=== PATIENT | male | born 1975 | race Caucasian/White ===

== ENCOUNTER 2018-10-03 21:53 | Emergency (ER) | payer MEDICAID, MEDICARE ==
[~2018-10-03] VITALS: Ht 182.9 cm; Wt 99.8 kg
[~2018-10-03 21:53] MED LIST: AZIT-21 PO; CYCL10TA9 PO; HYDR-2890 PO; NAPR-243 PO; PRD20T PO; TRM50T PO
--- OUTSIDE RECORDS SUMMARY | 2018-10-03 21:57 | XMS REPORT | Continuity of Care Document ---
Author Organization Unknown Address Unknown Allergies Active Description Code Type Severity Reaction Onset Reported/Identified Relationship to Patient Clinical Status Yes Penicillins Drug Allergy N/A N/A 07/02/2013 Yes Toradol Drug Allergy N/A N/A 07/02/2013 Yes tramadol Drug Allergy N/A N/A 07/02/2013 Medications There is no data. 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 07/02/2013 IVANA GALDAMEZ APRN R 521.07 DENTAL CARIES OF SMOOTH SURFACE 07/02/2013 IVANA GALDAMEZ APRN R 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 08/08/2013 IVANA GALDAMEZ APRN R 461.9 SINUSITIS ACUTE 08/08/2013 IVANA GALDAMEZ APRN R 786.2 COUGH 08/08/2013 IVANA GALDAMEZ APRN R 850.11 CONCUSSION WITH LOSS OF CONSCIOUSNESS OF 30 MINUTES OR LESS 08/08/2013 IVANA GALDAMEZ APRN R 854.02 INTRACRANIAL INJURY OF OTHER AND UNSPECIFIED NATURE WITHOUT OPEN INTRACRANIAL WOUND WITH BRIEF (LESS THAN ONE HOUR) LOSS OF CONSCIOU Procedures Code [place] [address] URINE DRUG SCREEN (IN-HOUSE ) 07/02/[address] HEAD/BRAIN W/O DYE 08/08/2013 00136 UA LONG DIP 08/08/2013 20682 URINE DRUG SCREEN (IN-HOUSE ) 08/08/2013 Results There is no data. Encounters ACCT No. Visit Date/Time Discharge Status Pt. Type Provider Facility Loc./Unit Complaint [id number] 08/08/2013 10:45:00 08/08/2013 23:59:59 CLS Outpatient IVANA GALDAMEZ APRN [id number] 07/11/2013 09:56:00 07/11/2013 23:59:59 CLS Outpatient IVANA GALDAMEZ APRN [id number] 07/02/2013 16:12:00 07/02/2013 23:59:59 CLS Outpatient RITA ROGEL DO [id number] 07/02/2013 16:12:00 07/02/2013 23:59:59 CLS Outpatient IVANA GALDAMEZ APRN [id number] 08/08/2013 12:01:00 08/08/2013 23:59:59 CLS Outpatient [id number] 06/29/2013 11:01:00 06/29/2013 12:16:00 DIS Emergency [id number] 05/22/2013 12:28:00 05/22/2013 23:59:59 CLS Emergency [id number] 05/17/2013 17:12:00 05/17/2013 19:13:00 DIS Emergency
[2018-10-03 22:33] VITALS: BP 116/70
--- NOTE | 2018-10-04 05:17 | Diagnostic Imaging Report ---
INDICATION: Right foot injury. FINDINGS: 3 views of right foot show no fracture, dislocation or other acute abnormalities. IMPRESSION: Negative right foot. Dictated by: Dictated on workstation # [id number]
--- NOTE | 2018-10-04 16:56 | ED Lower Extremity ---
General Chief Complaint: Lower Extremity Stated Complaint: RT BIG TOE INJ Nursing Triage Note: pt kicked horse shoe stand while walking around in the dark at 0630 this morning. pt has taken ibuprofen 800 mg tid today Nursing Sepsis Screen: No Definite Risk Source: patient Exam Limitations: no limitations History of Present Illness Date Seen by Provider: October 04, 2018 Time Seen by Provider: 19:22 Initial Comments She has a 42-year-old male well known to this emergency department presents with right forefoot pain after kicking a horseshoe stand early today. She has been active walking throughout the day. He reports pain despite taking ibuprofen. No other symptoms or complaint. On exam, there is no appreciated swelling, bruising, deformity to the medial aspect of the forefoot or patient localizes pain. Patient ambulates with steady gait. Onset: this morning Pain/Injury Location: right 1st toe Method of Injury: direct blow Allergies and Home Medications Home Medications Cyclobenzaprine Hcl 10 Mg Tablet, 1 EACH PO TID, (Reported) Hydrocodone Bit/Acetaminophen 1 Each Tablet, 1 EACH PO QID, (Reported) Prednisone 20 Mg Tab, 40 MG PO DAILY Prescribed by: JORDYN ROWLAND on 05/17/13 0342 Patient Home Medication List Home Medication List Reviewed: Yes Review of Systems Constitutional: no symptoms reported EENTM: no symptoms reported Respiratory: no symptoms reported Cardiovascular: no symptoms reported Genitourinary: no symptoms reported Musculoskeletal: see HPI Skin: no symptoms reported Psychiatric/Neurological: No Symptoms Reported Past Gfznwoz-Esfsaw-Jjxffk Hx Patient Social History Alcohol Use: Denies Use Recreational Drug Use: No Smoking Status: Current Everyday Smoker Type Used: Cigarettes 2nd Hand Smoke Exposure: No Recent Foreign Travel: No Contact w/Someone Who Travel: No Recent Infectious Disease Expo: No Recent Hopitalizations: No Physical Abuse: No Sexual Abuse: No Mistreated: No Fear: No Immunizations Up To Date Date of Influenza Vaccine: Jun 05, 2012 Seasonal Allergies Seasonal Allergies: No Past Medical History Surgeries: No Respiratory: No Cardiac: No Neurological: No Genitourinary: No Gastrointestinal: No Musculoskeletal: No Chronic Back Pain Endocrine: No HEENT: No Cancer: No Psychosocial: No Bipolar Integumentary: No Blood Disorders: No Family Medical History No Pertinent Family Hx Physical Exam Vital Signs Vital Signs - First Documented 10/03/18 22:08 Temp 98.4 Pulse 98 Resp 15 B/P (MAP) 124/80 (95) Pulse Ox 96 O2 Delivery Room Air Capillary Refill : Less Than 3 Seconds Height, Weight, BMI Height: 6'0" Weight: 220lbs. oz. 99.475184qk; BMI Method:Stated General Appearance: WD/WN Progress/Results/Core Measures Results/Orders My Orders Orders - JOSE DAVID RODGERS DO Foot 3 View Right (10/03/18 22:10) Vital Signs/I&O 10/03/18 10/03/18 22:08 22:33 Temp 98.4 98.0 Pulse 98 93 Resp 15 16 B/P (MAP) 124/80 (95) 116/70 (85) Pulse Ox 96 95 O2 Delivery Room Air Room Air Blood Pressure Mean: 85 Departure Communication (Admissions) No identifiable gross injury fracture on imaging studies. Recommend Simone wrap, ibuprofen and supportive care. Impression Primary Impression: Right foot pain Disposition: 01 HOME, SELF-CARE Condition: Improved Departure-Patient Inst. Add. Discharge Instructions: You were evaluated in the emergency department for right foot injury. No injury is found on exam or x-ray. Please apply ice and continue ibuprofen for pain. Avoid walking, standing for prolonged periods of time if symptoms persist. All discharge instructions reviewed with patient and/or family. Voiced understanding. JOSE DAVID RODGERS DO October 04, 2018 16:56
== END 2018-10-03 22:33 | disposition home or self-care (01) ==
LOC: EDUNIT# 21:53 → ER FS 21:54
DX: M79.671 Pain in right foot (principal); F31.9 Bipolar disorder, unspecified; F17.210 Nicotine dependence, cigarettes, uncomplicated; Z79.52 Long term (current) use of systemic steroids; W22.09XA Striking against other stationary object, initial encounter
CPT/HCPCS: 73630

== ENCOUNTER 2020-12-22 17:26 | Emergency (ER) | payer SELFPAY ==
[~2020-12-22] VITALS: Ht 180.3 cm; Wt 95.4 kg
[2020-12-22 17:30] VITALS: BP 118/75
--- NOTE | 2020-12-22 18:02 | ED Lower Extremity ---
General Chief Complaint: General Problems/Pain Stated Complaint: FALL; RT HAND/LT FOOT INJ Source: patient History of Present Illness Date Seen by Provider: Dec 22, 2020 Time Seen by Provider: 17:15 Initial Comments Patient is a 45-year-old male who presents with right wrist pain and left midfoot pain after falling 18 hours ago. Reports sharp pain to the right ulnar aspect of wrist and dorsum of left foot. Pain is worse with palpation patient hand and wrist movement. Patient has history of right wrist injury. No other symptoms or complaints Onset: yesterday Severity: moderate Pain/Injury Location: left foot Method of Injury: other Modifying Factors: Improves With Other Allergies and Home Medications Allergies Coded Allergies: No Known Drug Allergies (Unverified , 12/22/20) Home Medications Cyclobenzaprine Hcl 10 Mg Tablet, 1 EACH PO TID, (Reported) Hydrocodone Bit/Acetaminophen 1 Each Tablet, 1 EACH PO QID, (Reported) Prednisone 20 Mg Tab, 40 MG PO DAILY Prescribed by: JORDYN ROWLAND on 05/17/131906 Patient Home Medication List Home Medication List Reviewed: Yes Review of Systems Constitutional: no symptoms reported Musculoskeletal: joint swelling, muscle pain Past Zkkoggc-Lzwiap-Nifxfb Hx Seasonal Allergies Seasonal Allergies: No Past Medical History Surgeries: No Respiratory: No Cardiac: No Neurological: No Genitourinary: No Gastrointestinal: No Musculoskeletal: No Chronic Back Pain Endocrine: No HEENT: No Cancer: No Psychosocial: No Bipolar Integumentary: No Blood Disorders: No Family Medical History No Pertinent Family Hx Physical Exam Vital Signs Vital Signs - First Documented 12/22/20 17:30 Temp 36.2 Pulse 90 Resp 20 B/P (MAP) 118/75 (89) Pulse Ox 98 O2 Delivery Room Air Capillary Refill : Height, Weight, BMI Height: 6'0" Weight: 220lbs. oz. 99.821726nz; BMI Method:Stated General Appearance: WD/WN Feet: left foot soft tissue tenderness Neurologic/Tendon: normal sensation Neurologic/Psychiatric: full stack engineer II-XII nml as tested, no motor/sensory deficits, alert, oriented x 3 Skin: normal color Lymphatic: no adenopathy Right wrist, no deformity, soft tissue tenderness right ulnar aspect of right wrist. Progress/Results/Core Measures Results/Orders My Orders Orders - JOSE DAVID RODGERS DO Foot 3 View Left (12/22/20 17:36) Wrist 3 View Right (12/22/20 17:36) Ice: Apply To Affected Area (12/22/20 18:13) Ibuprofen Tablet (Motrin Tablet) (12/22/20 18:15) Vital Signs/I&O 12/22/20 17:30 Temp 36.2 Pulse 90 Resp 20 B/P (MAP) 118/75 (89) Pulse Ox 98 O2 Delivery Room Air Departure Communication (Admissions) Left foot x-ray: No obvious displaced fracture per radiology report Right wrist x-ray: No obvious displaced fracture per radiology report Patient histrionic on exam. No obvious acute fracture injury identified on physical exam or imaging. Recommendations are supportive care with PCP follow-up. Impression Primary Impression: Injury of right wrist Additional Impression: Injury of left foot Disposition: 01 HOME, SELF-CARE Condition: Stable Departure-Patient Inst. Decision time for Depature: 18:19 Referrals: NO,LOCAL PHYSICIAN (PCP/Family) Primary Care Physician Patient Instructions: Foot Sprain (DC), Common Wrist Injuries ED Add. Discharge Instructions: Please take 600 mg of ibuprofen 3 times daily, apply ice to affected areas and follow-up with your PCP as needed. All discharge instructions reviewed with patient and/or family. Voiced understanding. JOSE DAVID RODGERS DO Dec 22, 2020 18:02
--- NOTE | 2020-12-22 18:11 | Diagnostic Imaging Report ---
INDICATION: Fall. COMPARISON: None FINDINGS: Three views of the right wrist demonstrate chronic degeneration with subchondral cysts of the scaphoid. Orthopedic pins are seen in the fifth metacarpal. There is no obvious acute fracture or dislocation. No unexpected radiopaque foreign body. IMPRESSION: No obvious acute fracture deformity. If symptoms persist follow-up is recommended. Dictated by: Dictated on workstation # [id number]
--- NOTE | 2020-12-22 18:12 | Diagnostic Imaging Report ---
INDICATION: Fall, left foot pain. FINDINGS: Three views of the left foot demonstrate no fracture or dislocation. Articular surfaces are normal. No bony erosion is seen. No foreign body. IMPRESSION: No fracture identified. Dictated by: Dictated on workstation # [id number]
[2020-12-22] MEDS ORDERED: IBUPROFEN 600 MG (MOTRIN) TAB PO ONE (18:15)
== END 2020-12-22 18:27 | disposition home or self-care (01) ==
LOC: EDUNIT# 17:26 → ER FS 17:27
DX: S69.91XA Unspecified injury of right wrist, hand and finger(s), initial encounter (principal); S99.922A Unspecified injury of left foot, initial encounter; G89.29 Other chronic pain; M54.9 Dorsalgia, unspecified; Z79.891 Long term (current) use of opiate analgesic; Z79.899 Other long term (current) drug therapy; Z79.52 Long term (current) use of systemic steroids; W19.XXXA Unspecified fall, initial encounter
CPT/HCPCS: 73110; 73630

== ENCOUNTER 2021-01-01 13:03 | Emergency (ER) | payer SELFPAY ==
[~2021-01-01] VITALS: Ht 180.3 cm; Wt 95.3 kg
[2021-01-01 13:05] VITALS: BP 121/81
[2021-01-01] MEDS ORDERED: KETOROLAC 60 MG/2 ML VIAL IM STA (13:52)
[2021-01-01] MEDS ORDERED: ORPHENADRINE 60 MG/2 ML (NORFLEX) AMP (ED ONLY) IM STA (13:52)
--- NOTE | 2021-01-01 13:53 | ED General ---
General Chief Complaint: General Problems/Pain Stated Complaint: ALFONZO ANK/WRIST SWELLING Source of Information: Patient, EMS History of Present Illness Date Seen by Provider: Jan 01, 2021 Time Seen by Provider: 13:24 Initial Comments 45 yo male presented by EMS stating he was having increasing pain since his fall on December 22. He was evaluated in the ED on December 22 and had x-rays of his right wrist and foot. He has not followed up with Dr. Gruber the [facility] clinic. She prescribed diclofenac and Flexeril for him. He states that they were not helping with his pain symptoms. He felt like he was getting increasing swelling and pain to the point that he was having difficulty using his hands and his feet. He feels like he has swelling to the right knee joint which she thinks caused his initial fall. He feels like he has some mild bruising to the inside of both feet. He is complaining of pain, swelling, bruising to the wrist and hand worse on the left than the right. He states that he has been trying to use the medicine prescribed by Dr. Yoel Mckenzie pulled out at home but felt like things were so bad today that he had to be seen. He made the statement that "I deserve pain medicine for waiting so long to come in". He adamantly denies u sing any drugs or alcohol and repeatedly states that he deserves pain medication. Location Injury Occurred: home Timing/Duration: Getting Worse, Other (Initial injury December 22) Severity: Severe Modifying Factors: worse with Movement Associated Systoms: No Chest Pain, No Cough, No Diaphoresis, No Fever/Chills, No Headaches, No Loss of Appetite, No Nausea/Vomiting, No Rash, No Seizure, No Shortness of Air, No Syncope Allergies and Home Medications Allergies Coded Allergies: No Known Drug Allergies (Unverified , 12/22/20) Home Medications No Active Prescriptions or Reported Meds Patient Home Medication List Home Medication List Reviewed: Yes Review of Systems Review of Systems Constitutional: No chills, No fever EENTM: no symptoms reported Respiratory: no symptoms reported Cardiovascular: no symptoms reported Gastrointestinal: no symptoms reported Genitourinary: no symptoms reported Musculoskeletal: see HPI Skin: see HPI Psychiatric/Neurological: Anxiety Past Eghllod-Mzvjjm-Sazqkt Hx Seasonal Allergies Seasonal Allergies: No Past Medical History Surgery/Hospitalization HX: Boxer's Fx R hand?, Numerous falls on hx reporting injuries Surgeries: No Respiratory: No Cardiac: No Neurological: No Genitourinary: No Gastrointestinal: No Musculoskeletal: No Chronic Back Pain Endocrine: No HEENT: No Cancer: No Psychosocial: No Bipolar Integumentary: No Blood Disorders: No Family Medical History No Pertinent Family Hx Physical Exam Vital Signs Vital Signs - First Documented 01/01/21 13:05 Temp 37.2 Pulse 116 Resp 18 B/P (MAP) 121/81 (94) Pulse Ox 97 O2 Delivery Room Air Capillary Refill : Height, Weight, BMI Height: 6'0" Weight: 220lbs. oz. 99.435786tx; 29.00 BMI Method:Stated General Appearance: Anxious, Other (Demanding meanor and short tempered with staff. yelling frequently and repeatedly even when redirected or had his needs/questions addressed) Neck: Full Range of Motion, Normal Inspection, Non Tender, Supple Respiratory: Chest Non Tender, Lungs Clear, Normal Breath Sounds Cardiovascular: Normal Peripheral Pulses, Tachycardia Extremity: Normal Capillary Refill, No Calf Tenderness, Swelling (mild swelling to bilateral wrists, left more than right. mild swelling to medial aspect of bilateral feet. ) Neurologic/Psychiatric: Alert, Oriented x3, cork insulation setter II-XII Norm as Tested Skin: Warm/Dry, Ecchymosis (mild ecchymosis/bruised area to left wrist palmar aspect) Progress/Results/Core Measures Suspected Sepsis SIRS Temperature: Pulse: Respiratory Rate: Laboratory Tests 01/01/21 14:20: White Blood Count 24.4H Blood Pressure / Mean: Laboratory Tests 01/01/21 14:20: Creatinine 0.55L, Platelet Count 575H, Total Bilirubin 0.8 Results/Orders Lab Results Laboratory Tests Test 01/01/21 14:20 Range/Units White Blood Count 24.4 H 4.3-11.0 10^3/uL Red Blood Count 4.19 L 4.35-5.85 10^6/uL Hemoglobin 12.8 L 13.3-17.7 G/DL Hematocrit 38 L 40-54 % Mean Corpuscular Volume 90 80-99 FL Mean Corpuscular Hemoglobin 31 25-34 PG Mean Corpuscular Hemoglobin Concent 34 32-36 G/DL Red Cell Distribution Width 15.4 H 10.0-14.5 % Platelet Count 575 H 130-400 10^3/uL Mean Platelet Volume 9.5 7.4-10.4 FL Immature Granulocyte % (Auto) 9 % Neutrophils (%) (Auto) 80 H 42-75 % Lymphocytes (%) (Auto) 6 L 12-44 % Monocytes (%) (Auto) 4 0-12 % Eosinophils (%) (Auto) 1 0-10 % Basophils (%) (Auto) 0 0-10 % Neutrophils # (Auto) 19.5 H 1.8-7.8 X 10^3 Lymphocytes # (Auto) 1.5 1.0-4.0 X 10^3 Monocytes # (Auto) 1.0 0.0-1.0 X 10^3 Eosinophils # (Auto) 0.2 0.0-0.3 10^3/uL Basophils # (Auto) 0.1 0.0-0.1 10^3/uL Immature Granulocyte # (Auto) 2.1 H 0.0-0.1 10^3/uL Neutrophils % (Manual) 81 % Lymphocytes % (Manual) 9 % Monocytes % (Manual) 2 % Metamyelocytes % 3 % Myelocytes % 2 % Band Neutrophils 3 % Toxic Granulation 3+ Dohle Bodies Platelet Estimate INCREASED Target Cells SLIGHT Blood Morphology Comment ABNORMAL D-Dimer 7.59 H 0.00-0.49 UG/ML Sodium Level 130 L 135-145 MMOL/L Potassium Level 4.7 3.6-5.0 MMOL/L Chloride Level 95 L 98-107 MMOL/L Carbon Dioxide Level 22 21-32 MMOL/L Anion Gap 13 5-14 MMOL/L Blood Urea Nitrogen 11 7-18 MG/DL Creatinine 0.55 L 0.60-1.30 MG/DL Estimat Glomerular Filtration Rate 160 BUN/Creatinine Ratio 20 Glucose Level 201 H 70-105 MG/DL Calcium Level 8.5 8.5-10.1 MG/DL Corrected Calcium 9.6 8.5-10.1 MG/DL Total Bilirubin 0.8 0.1-1.0 MG/DL Aspartate Amino Transf (AST/SGOT) 63 H 5-34 U/L Alanine Aminotransferase (ALT/SGPT) 108 H 0-55 U/L Alkaline Phosphatase 384 H 40-136 U/L Total Protein 6.8 6.4-8.2 GM/DL Albumin 2.6 L 3.2-4.5 GM/DL My Orders Orders - CHARY BROWER MD Comprehensive Metabolic Panel (01/01/21 13:46) Ua Culture If Indicated (01/01/21 13:46) Cbc With Automated Diff (01/01/21 13:46) Fibrin Degradation Products (01/01/21 13:46) Wrist 3 View Bilateral (01/01/21 13:46) Hand 3 View Bilateral (01/01/21 13:46) Foot 3 View Bilateral (01/01/21 13:46) Drug Screen Stat (Urine) (01/01/21 13:48) Ketorolac Injection (Toradol Injection) (01/01/21 13:52) Orphenadrine Inj (Ed Only) (Norflex Inje (01/01/21 13:52) Manual Differential (01/01/21 14:20) Vital Signs/I&O 01/01/21 13:05 Temp 37.2 Pulse 116 Resp 18 B/P (MAP) 121/81 (94) Pulse Ox 97 O2 Delivery Room Air Capillary Refill : Progress Note #1: Progress Note Advised patient that I cannot give him an exact answer of why he was still having swelling and pain to his hands, wrists, feet after 10 days of symptoms since the fall. He felt like things were improved with the medication from Dr. Gruber. He repeatedly asked for pain medicine stating that he "deserves pain medicine because I waited so long to come in and be seen". Counseled pt that will order xrays to check the hands, wrists, and feet. For his pain will get him a pain shot. check basic labs and urine. As I finished my evaluation of the patient he had to be moved to another room as the current room he was in was needed for another patient requiring that specific room which had psychiatric capability. Progress Note #2: Progress Note Patient had imaging done of his hands, wrists and feet. He then was waiting on labs and reading of films. He continued to yell out for the nurse every minute or two, even right after staff would go in and answer questions for him or assist him. While I was working with another patient that required a procedure, the patient became more and more belligerent to the point that he signed out AMA and refused to wait and speak with me when I got out of the procedure with the other patient. When I did finish with the other patient she had already left [facility]. By that point his x-ray results were back and did show a subacute fifth metacarpal fracture on the left hand. This certainly could be contributing to the pain and swelling into his wrist. He had no acute changes on the right side and the hardware appeared to be intact. Has feet were negative bilaterally. His lab work showed elevated white blood cell count and his chemistry panel showed elevated LFTs with an elevated D-dimer. Patient had told the nursing staff that he intended to go to another hospital to be seen since he felt like we were taking too long and were not adequately taking care of him. Diagnostic Imaging Diagonstic Imaging: Xray Plain Films/CT/US/NM/MRI: hand Comments [facility] [place], [place] NAME: PRETTY CASTRO [facility] REC#: [id number] PT STATUS: DEP ER : 1975 PHYSICIAN: CHARY BROWER MD ADMIT DATE: 01/01/21/ER FS Signed Date of Exam:01/01/21 WRIST 3 VIEW BILATERAL INDICATION: Bilateral wrist pain status post fall. COMPARISON: 12/22/2020. FINDINGS: Multiple radiographic views of the bilateral wrists were obtained. LEFT WRIST: There is no acute fracture or dislocation of the left wrist. Note is again made of subacute appearing fracture of the distal fifth metacarpal. Radiopaque foreign body is also noted within the soft tissues medial to the first metacarpal. Joint spaces are maintained. RIGHT WRIST: There is no acute fracture or dislocation of the right wrist. Degenerative lucencies of the scaphoid are again noted. Two Lexii wires are also again identified within the fifth metacarpal. No new acute fracture or dislocation is seen. IMPRESSION: 1. No new acute fracture or dislocation of either wrist. 2. Subacute appearing fracture of the left fifth metacarpal. 3. Degenerative changes of the right scaphoid. 4. Curvilinear metallic foreign body medial to the left first metacarpal. Dictated by: Dictated on workstation # [id number] Dict: 01/01/21 1432 Trans: 01/01/21 1741 [id number] Interpreted by: PRERNA BLAKE MD Electronically signed by: PRERNA BLAKE MD 01/01/211740 [facility] [place] [place] NAME: PRETTY CASTRO MED REC#: [id number] PT STATUS: [facility] : 1975 PHYSICIAN: CHARY BROWER MD ADMIT DATE: 01/01/21/ER FS Signed Date of Exam:01/01/21 HAND 3 VIEW BILATERAL INDICATION: Fall. Pain. Injury. COMPARISON: None. FINDINGS: Multiple radiographic views of both hands were obtained. LEFT HAND: A subacute obliquely oriented fracture is identified involving the distal fifth metacarpal shaft. There is moderate angulation of approximately 50 degrees. Note is made of surrounding soft tissue ossification consistent with probable early partial healing. No intra-articular extension is seen. No other acute osseous abnormalities are identified. Joint spaces are maintained. There is chronic appearing deformity involving the proximal margins of the fifth distal phalanx. Note is also made of curvilinear metallic foreign body within the soft tissues medial to the first metacarpal. RIGHT HAND: Two Lexii wires are again identified traversing the fifth metacarpal. These are in stable position. There is no new acute fracture or dislocation of the right hand. Remaining osseous structures are intact. Note is made of lucencies within the scaphoid; potentially degenerative. IMPRESSION: 1. Mildly angulated subacute fracture of the left fifth metacarpal as above. 2. Postsurgical changes to the right fifth metacarpal, but no evidence of acute fracture or dislocation of the right hand. 3. Soft tissue metallic foreign body of the left hand. 4. Probable degenerative lucencies of the right scaphoid. Dictated by: Dictated on workstation # [id number] Dict: 01/01/21 1420 Trans: 01/01/21 174 [id number] Interpreted by: PRERNA BLAKE MD Electronically signed by: PRERNA BLAKE MD 01/01/211739 Diagonstic Imaging: Xray Plain Films/CT/US/NM/MRI: other (foot) Comments [facility] [place] NAME: PRETTY CASTRO MED REC#: [id number] PT STATUS: DEP ER : 1975 PHYSICIAN: CHARY BROWER MD ADMIT DATE: 01/01/21/ER FS Signed Date of Exam:01/01/21 FOOT 3 VIEW BILATERAL INDICATION: Foot pain status post recent fall. COMPARISON: None. FINDINGS: Multiple radiographic views of the bilateral feet demonstrate no acute fracture or dislocation. There are no focal osseous lesions. There is no soft tissue swelling. Joint spaces are well maintained. No radiopaque foreign bodies are seen. IMPRESSION: No acute fractures or dislocations of the bilateral feet. Dictated by: Dictated on workstation # [id number] Dict: 01/01/21 1424 Trans: 01/01/[address] [facility] [id number] Interpreted by: PRERNA BLAKE MD Electronically signed by: PRERNA BLAKE MD 01/01/21 1740 Departure Impression Primary Impression: Left against medical advice Additional Impressions: Closed fracture of fifth metacarpal bone of left hand Qualified Codes: S62.327D - Displaced fracture of shaft of fifth metacarpal bone, left hand, subsequent encounter for fracture with routine healing Bilateral hand swelling Swelling of both wrists Bilateral foot pain Bilateral wrist pain Fall at home Qualified Codes: W19.XXXD - Unspecified fall, subsequent encounter; Y92.009 - Unspecified place in unspecified non-institutional (private) residence as the place of occurrence of the external cause Disposition: 07 AGAINST MEDICAL ADVICE Condition: Against Medical Advice Departure-Patient Inst. Referrals: NO,LOCAL PHYSICIAN (PCP/Family) Primary Care Physician Scripts No Active Prescriptions or Reported Meds CHARY BROWER MD Jan 01, 2021 13:53
--- NOTE | 2021-01-01 14:26 | Diagnostic Imaging Report ---
INDICATION: Foot pain status post recent fall. COMPARISON: None. FINDINGS: Multiple radiographic views of the bilateral feet demonstrate no acute fracture or dislocation. There are no focal osseous lesions. There is no soft tissue swelling. Joint spaces are well maintained. No radiopaque foreign bodies are seen. IMPRESSION: No acute fractures or dislocations of the bilateral feet. Dictated by: Dictated on workstation # [id number]
--- NOTE | 2021-01-01 14:29 | Diagnostic Imaging Report ---
INDICATION: Fall. Pain. Injury. COMPARISON: None. FINDINGS: Multiple radiographic views of both hands were obtained. LEFT HAND: A subacute obliquely oriented fracture is identified involving the distal fifth metacarpal shaft. There is moderate angulation of approximately 50 degrees. Note is made of surrounding soft tissue ossification consistent with probable early partial healing. No intra-articular extension is seen. No other acute osseous abnormalities are identified. Joint spaces are maintained. There is chronic appearing deformity involving the proximal margins of the fifth distal phalanx. Note is also made of curvilinear metallic foreign body within the soft tissues medial to the first metacarpal. RIGHT HAND: Two Lexii wires are again identified traversing the fifth metacarpal. These are in stable position. There is no new acute fracture or dislocation of the right hand. Remaining osseous structures are intact. Note is made of lucencies within the scaphoid; potentially degenerative. IMPRESSION: 1. Mildly angulated subacute fracture of the left fifth metacarpal as above. 2. Postsurgical changes to the right fifth metacarpal, but no evidence of acute fracture or dislocation of the right hand. 3. Soft tissue metallic foreign body of the left hand. 4. Probable degenerative lucencies of the right scaphoid. Dictated by: Dictated on workstation # [id number]
--- NOTE | 2021-01-01 14:37 | Diagnostic Imaging Report ---
INDICATION: Bilateral wrist pain status post fall. COMPARISON: 12/22/2020. FINDINGS: Multiple radiographic views of the bilateral wrists were obtained. LEFT WRIST: There is no acute fracture or dislocation of the left wrist. Note is again made of subacute appearing fracture of the distal fifth metacarpal. Radiopaque foreign body is also noted within the soft tissues medial to the first metacarpal. Joint spaces are maintained. RIGHT WRIST: There is no acute fracture or dislocation of the right wrist. Degenerative lucencies of the scaphoid are again noted. Two Lexii wires are also again identified within the fifth metacarpal. No new acute fracture or dislocation is seen. IMPRESSION: 1. No new acute fracture or dislocation of either wrist. 2. Subacute appearing fracture of the left fifth metacarpal. 3. Degenerative changes of the right scaphoid. 4. Curvilinear metallic foreign body medial to the left first metacarpal. Dictated by: Dictated on workstation # [id number]
[2021-01-01 14:53] LABS: BASOPHILS % (AUTO) 0 % (0-10); EOSINOPHILS % (AUTO) 1 % (0-10); HEMATOCRIT 38 % (40-54); HEMOGLOBIN 12.8 G/DL (13.3-17.7); LYMPHOCYTES % (AUTO) 6 % (12-44); MEAN CORPUSCULAR HEMOGLOBIN 31 PG (25-34); MEAN CORPUSCULAR HGB CONC 34 G/DL (32-36); MEAN CORPUSCULAR VOLUME 90 FL (80-99); MEAN PLATELET VOLUME 9.5 FL (7.4-10.4); MONOCYTES % (AUTO) 4 % (0-12); NEUTROPHILS % (AUTO) 80 % (42-75); PLATELET COUNT 575 10^3/uL (130-400); WHITE BLOOD COUNT 24.4 10^3/uL (4.3-11.0)
[2021-01-01 14:54] LABS: BASOPHILS # (AUTO) 0.1 10^3/uL (0.0-0.1); EOSINOPHILS # (AUTO) 0.2 10^3/uL (0.0-0.3); LYMPHOCYTES # (AUTO) 1.5 X 10^3 (1.0-4.0); NEUTROPHILS # (AUTO) 19.5 X 10^3 (1.8-7.8)
[2021-01-01 15:15] LABS: ALBUMIN 2.6 GM/DL (3.2-4.5); BILIRUBIN,TOTAL 0.8 MG/DL (0.1-1.0); CALCIUM 8.5 MG/DL (8.5-10.1); CREATININE SERUM 0.55 MG/DL (0.60-1.30); TOTAL PROTEIN 6.8 GM/DL (6.4-8.2)
[2021-01-01 15:18] LABS: POTASSIUM 4.7 MMOL/L (3.6-5.0)
[2021-01-01 15:26] LABS: BAND NEUTROPHILS 3 %; LYMPHOCYTES % (MANUAL) 9 %; METAMYELOCYTES % 3 %; MONOCYTES % (MANUAL) 2 %; MYELOCYTES % 2 %; NEUTROPHILS % (MANUAL) 81 %; PLATELET ESTIMATE INCREASED
[2021-01-01 15:27] LABS: RBC MORPH ABNORMAL; TARGET CELLS SLIGHT; TOXIC GRANULATION/VACUOLAZATIO 3+
--- OUTSIDE RECORDS SUMMARY | 2021-01-05 23:31 | XMS REPORT ---
Author Author [facility] ([facility]) Address Unknown Phone Unavailable Care Team Providers Care Acquisition Editor Name Role Phone Migration, Doctor Unavailable Unavailable PROBLEMS Type Condition ICD9-CM Code IME67-SU Code Onset Dates Condition S tatus W/U Status Risk SNOMED Code Notes Problem Displacement of lumbar intervertebral disc without mye lopathy M51.26 Active 20020311 DISPLACEMENT OF LUMBAR INTERVERTEBRAL DISC WITHOUT MYELOPATHY Problem Other chronic pain G89.29 Active confirmed 8 5603556 Problem Concussion with loss of consciousness of 30 minutes or less S06.0X1A Active [id number] CONCUSSION WITH LOSS OF CONSCIOUSNESS OF 30 MINUTES OR LESS ALLERGIES Allergen (clinical drug ingredient) Drug/Non Drug Allergy do cumented on EMR Reaction Allergy Type Onset Date Status Tramadol Unknown Drug Allergy Active Toradol Unknown Drug Allergy Active amoxicillin Amoxicillin(FORMER[facility] NAMED [facility] Code:[address]-14) Unknown Drug Aller gy Active ENCOUNTERS from 1975 to 2020-11-25 Encounter Location Date Provider Diagnosis [facility] [address] [facility] [id number] [place] [address] Sep, Doctor Migration IMMUNIZATIONS No Information SOCIAL HISTORY Sex Assigned At : Social History Observation Description Sex Assigned At Unknown Alcohol Screen (Audit-C) Question Answer Notes Did you have a drink containing alcohol in the past year? Ye s Points 1 Interpretation Negative How often did you have 6 or more drinks on one occasio n in the past year? Never (0 points) How many drinks did you have on a typica l day when you were drinking in the past year? 1 or 2 (0 points) How often did you have a drink containing alcohol in t he past year? Monthly or less (1 point) Cessation Question Answer Notes Date Tobacco Cessation Provided: 03/28/2019 Tobacco use other than smoking: Question Answer Notes Are you an other tobacco user? No REASON FOR REFERRAL No Information VITAL SIGNS No information MEDICATIONS Medication SIG (Take, Route, Frequency, Duration) Notes Start Da te End Date Status Gabapentin 100 MG 1 capsule Orally Once a day for 30 day(s) Jun, Active [place] 5-325 MG 1 tablet as needed Orally every 6 hrs for 5 days Jun, Active PROCEDURES No Information RESULTS No Results REASON FOR VISIT [facility] Goals Section No Information Health Concerns No Information MEDICAL EQUIPMENT No Information MENTAL STATUS No Information FUNCTIONAL STATUS No Information ASSESSMENTS No Information PLAN OF TREATMENT Medication Medication Name Sig Start Date Stop Date Gabapentin 100 MG 1 capsule Orally Once a day for 30 day(s) 2019 [place] 5-325 MG 1 tablet as needed Orally every 6 hrs for 5 days Jun, Insurance Providers Payer Name Payer Address Payer Phone Insured Name Patient Relati onship to Insured Coverage Start Date Coverage End Date [facility] PART A FI [id number] [place] [id number] Kaveh Costello
== END 2021-01-01 15:05 | disposition left against medical advice (07) ==
LOC: EDUNIT# 13:03 → ER FS 13:04
DX: S62.327A Displaced fracture of shaft of fifth metacarpal bone, left hand, initial encounter for closed fracture (principal); S60.212A Contusion of left wrist, initial encounter; M79.89 Other specified soft tissue disorders; M79.672 Pain in left foot; M79.671 Pain in right foot; W19.XXXA Unspecified fall, initial encounter; Y92.009 Unspecified place in unspecified non-institutional (private) residence as the place of occurrence of the external cause
CPT/HCPCS: 80053; 85007; 85379

== ENCOUNTER 2021-01-06 17:47 | Emergency (ER) | payer SELFPAY ==
[2021-01-06] MEDS ORDERED: KETOROLAC 30 MG/ML VIAL IVP STA (17:52)
[2021-01-06] MEDS ORDERED: NS IV 1000 ML 1,000 ML IV STA (17:52)
[2021-01-06] MEDS ORDERED: fentaNYL INJ 100 MCG/2 ML AMP IVP STA (17:52)
--- NOTE | 2021-01-06 18:24 | ED General ---
General Chief Complaint: General Problems/Pain Stated Complaint: GEN PAIN Nursing Triage Note: Patient presents to the ED via EMS with c/o bilateral upper and lower extremity pain. Patient states that he was seen in the ED twice in the last couple weeks and wasn't given his xray results or treated for pain. He reports that he is unable to walk or move his arms due to severe pain and has been lying in bed for the past 3 days. Source of Information: Patient History of Present Illness Date Seen by Provider: Jan 06, 2021 Time Seen by Provider: 17:49 Initial Comments 45-year-old male presenting by EMS for his third visit for complaints from a fall back on December 22. He states he is not sure how he fell that he is having pain from the fall. He was seen December 22 and had x-rays that were stable of the right hand and right foot. He came back on January 01 and had x-rays of both hands both wrists and both feet. These images showed a angulated boxer's fracture that was subacute on the left hand. He had a metallic foreign body in the webbing between his thumb and index finger on the left hand. When asked about this he stated that he had accidentally shot a nail into his hand about 10 years ago. He states that he has been laying in bed and unable to get up due to pain. He has trouble using his hands and feet due to pain. He has swelling in his left hand and wrist especially in pain with attempted movement or palpation. On January 01 he left AGAINST MEDICAL ADVICE prior to receiving the results of any testing. He states he has not been anywhere else or seen anyone else since then. He has been laying in bed and having ot urinate and defecate on the floor per the patient. he called EMS to transport him to the ED today for the same complaint. He did state on January 01 he had gone to see provider in [facility] clinic but Diclofenac and Cyclobenzaprine were not helping him so he came to the ED due to that on January 01 and made the comment then that he felt he deserved pain medicine because he had waited so long to come to the ED. Modifying Factors: worse with Movement Associated Systoms: No Chest Pain, No Cough, No Diaphoresis, No Fever/Chills, No Headaches, No Loss of Appetite, No Malaise, No Nausea/Vomiting, No Rash, No Seizure, No Shortness of Air, No Syncope Allergies and Home Medications Allergies Coded Allergies: No Known Drug Allergies (Unverified , 12/22/20) Home Medications Hydrocodone/Acetaminophen 1 Each Tablet, 1 TAB PO Q6H PRN for PAIN-SEVERE (8-10) Prescribed by: CHARY BROWER on 01/06/212046 Patient Home Medication List Home Medication List Reviewed: Yes Review of Systems Review of Systems Constitutional: No chills, No fever; malaise EENTM: no symptoms reported Respiratory: no symptoms reported Cardiovascular: no symptoms reported Gastrointestinal: no symptoms reported Genitourinary: decreased output Musculoskeletal: see HPI Skin: change in color (bruising and redness to wrists/hands) Psychiatric/Neurological: Anxiety Past Adewxfu-Jpztfe-Quvhmu Hx Patient Social History Tobacco Use?: Yes Tobacco type used: Cigarettes Smoking Status: Current Everyday Smoker Substance use?: Yes Substance type: Marijuana Pt feels they are or have been: No Seasonal Allergies Seasonal Allergies: No Past Medical History Surgery/Hospitalization HX: Boxer's Fx R hand, Numerous falls on hx reporting injuries Surgeries: No Respiratory: No Cardiac: No Neurological: No Genitourinary: No Gastrointestinal: No Musculoskeletal: No Chronic Back Pain Endocrine: No HEENT: No Cancer: No Psychosocial: No Bipolar Integumentary: No Blood Disorders: No Family Medical History No Pertinent Family Hx Physical Exam Vital Signs Vital Signs - First Documented 01/06/21 17:53 Temp 36.3 Pulse 86 Resp 16 B/P (MAP) 124/81 (95) Pulse Ox 98 O2 Delivery Room Air Capillary Refill : Less Than 3 Seconds Height, Weight, BMI Height: 6'0" Weight: 220lbs. oz. 99.643728sc; 29.00 BMI Method:Stated General Appearance: Other (disheveled appearance and on bedspread from his house) HEENT: PERRL/EOMI; No Moist Mucous Membranes (slightly dry mucous membranes) Neck: Full Range of Motion, Normal Inspection, Non Tender, Supple Respiratory: Chest Non Tender, Lungs Clear, Normal Breath Sounds, No Accessory Muscle Use, No Respiratory Distress Cardiovascular: Regular Rate, Rhythm, Normal Peripheral Pulses Gastrointestinal: Normal Bowel Sounds, No Pulsatile Mass, Non Tender, Soft Rectal: Deferred Extremity: Normal Capillary Refill, Other (tender to palpation and movement of extremities at wrists and ankles, left worse than right) Neurologic/Psychiatric: Alert, Oriented x3 Skin: Warm/Dry, Ecchymosis (mild to left wrist) Focused Exam Lactate Level 01/06/21 18:10: Lactic Acid Level 1.26 Lactic Acid Level Laboratory Tests Test 01/06/21 18:10 Lactic Acid Level 1.26 MMOL/L (0.50-2.00) Procedures/Interventions Splinting and Joint Reduction : Location: left hand/ulnar gutter splint Pre-Proc Neuro Vasc Exam: normal Post-Proc Neuro Vasc Exam: normal Progress Ulnar gutter splint placed by nursing staff under my direct supervision. Pt neurovascularly intact pre and post splinting. Reports improved pain after splint application. Progress/Results/Core Measures Suspected Sepsis SIRS Temperature: Pulse: 86 Respiratory Rate: 16 Laboratory Tests 01/06/21 18:10: White Blood Count 18.0H Blood Pressure 124 /81 Mean: 95 01/06/21 18:10: Lactic Acid Level 1.26 Laboratory Tests 01/06/21 18:10: Creatinine 0.57L, Platelet Count 1175*H, Total Bilirubin 1.6H Results/Orders Lab Results Laboratory Tests Test 01/06/21 17:52 01/06/21 18:10 Range/Units Urine Color MEHNAZ H Urine Clarity CLEAR Urine pH 5.5 5-9 Urine Specific [place] 1.020 1.016-1.022 Urine Protein NEGATIVE NEGATIVE Urine Glucose (UA) NEGATIVE NEGATIVE Urine Ketones TRACE H NEGATIVE Urine Nitrite NEGATIVE NEGATIVE Urine Bilirubin 1+ H NEGATIVE Urine Urobilinogen >=8.0 < = 1.0 MG/DL Urine Leukocyte Esterase NEGATIVE NEGATIVE Urine RBC (Auto) NEGATIVE NEGATIVE Urine RBC 0-2 /HPF Urine WBC 2-5 /HPF Urine Squamous Epithelial Cells 0-2 /HPF Urine Crystals NONE /LPF Urine Bacteria NEGATIVE /HPF Urine Casts NONE /LPF Urine Mucus NEGATIVE /LPF Urine Culture Indicated NO Urine Opiates Screen NEGATIVE NEGATIVE Urine Oxycodone Screen NEGATIVE NEGATIVE Urine Methadone Screen NEGATIVE NEGATIVE Urine Propoxyphene Screen NEGATIVE NEGATIVE Urine Barbiturates Screen NEGATIVE NEGATIVE Ur Tricyclic Antidepressants Screen NEGATIVE NEGATIVE Urine Phencyclidine Screen NEGATIVE NEGATIVE Urine Amphetamines Screen POSITIVE H NEGATIVE Urine Methamphetamines Screen POSITIVE H NEGATIVE Urine Benzodiazepines Screen NEGATIVE NEGATIVE Urine Cocaine Screen NEGATIVE NEGATIVE Urine Cannabinoids Screen POSITIVE H NEGATIVE White Blood Count 18.0 H 4.3-11.0 10^3/uL Red Blood Count 4.06 L 4.35-5.85 10^6/uL Hemoglobin 12.5 L 13.3-17.7 G/DL Hematocrit 37 L 40-54 % Mean Corpuscular Volume 90 80-99 FL Mean Corpuscular Hemoglobin 31 25-34 PG Mean Corpuscular Hemoglobin Concent 34 32-36 G/DL Red Cell Distribution Width 14.7 H 10.0-14.5 % Platelet Count 1175 *H 130-400 10^3/uL Mean Platelet Volume 9.0 7.4-10.4 FL Immature Granulocyte % (Auto) 2 % Neutrophils (%) (Auto) 83 H 42-75 % Lymphocytes (%) (Auto) 9 L 12-44 % Monocytes (%) (Auto) 6 0-12 % Eosinophils (%) (Auto) 0 0-10 % Basophils (%) (Auto) 1 0-10 % Neutrophils # (Auto) 15.0 H 1.8-7.8 X 10^3 Lymphocytes # (Auto) 1.5 1.0-4.0 X 10^3 Monocytes # (Auto) 1.0 0.0-1.0 X 10^3 Eosinophils # (Auto) 0.1 0.0-0.3 10^3/uL Basophils # (Auto) 0.1 0.0-0.1 10^3/uL Immature Granulocyte # (Auto) 0.3 H 0.0-0.1 10^3/uL Neutrophils % (Manual) 74 % Lymphocytes % (Manual) 7 % Monocytes % (Manual) 5 % Eosinophils % (Manual) 0 % Basophils % (Manual) 1 % Metamyelocytes % 1 % Myelocytes % 1 % Band Neutrophils 4 % Atypical Lymphocytes 7 % Platelet Estimate INCREASED Hypochromasia 1+ Sodium Level 128 L 135-145 MMOL/L Potassium Level 4.3 3.6-5.0 MMOL/L Chloride Level 90 L 98-107 MMOL/L Carbon Dioxide Level 25 21-32 MMOL/L Anion Gap 13 5-14 MMOL/L Blood Urea Nitrogen 17 7-18 MG/DL Creatinine 0.57 L 0.60-1.30 MG/DL Estimat Glomerular Filtration Rate 154 BUN/Creatinine Ratio 30 Glucose Level 125 H 70-105 MG/DL Lactic Acid Level 1.26 0.50-2.00 MMOL/L Calcium Level 10.0 8.5-10.1 MG/DL Corrected Calcium 10.9 H 8.5-10.1 MG/DL Total Bilirubin 1.6 H 0.1-1.0 MG/DL Aspartate Amino Transf (AST/SGOT) 26 5-34 U/L Alanine Aminotransferase (ALT/SGPT) 62 H 0-55 U/L Alkaline Phosphatase 371 H 40-136 U/L Total Creatine Kinase 22 L 30-200 U/L Total Protein 7.6 6.4-8.2 GM/DL Albumin 2.9 L 3.2-4.5 GM/DL My Orders Orders - CHARY BROWER MD Ua Culture If Indicated (01/06/21 17:51) Drug Screen Stat (Urine) (01/06/21 17:51) Comprehensive Metabolic Panel (01/06/21 17:52) Ed Iv/Invasive Line Start (01/06/21 17:52) Cbc With Automated Diff (01/06/21 17:52) Blood Culture (01/06/21 17:52) Lactic Acid Analyzer (01/06/21 17:52) Creatine Kinase (01/06/21 17:52) Ns Iv 1000 Ml (Sodium Chloride 0.9%) (01/06/21 17:52) Ketorolac Injection (Toradol Injection) (01/06/21 17:52) Fentanyl Inj (Sublimaze Injection) (01/06/21 17:52) Ed Ortho/Other Supplies Order (01/06/21 17:52) Ortho Glass (01/06/21 17:52) Orthopedic Equiment (01/06/21 17:52) Manual Differential (01/06/21 18:10) Rx-Hydrocodone/Apap 5-325 Mg (Rx-Vicodin (01/06/21 20:45) Cockup Splint (01/06/21 20:51) Medications Given in ED Current Medications Medications Dose Ordered Sig/José Miguel Route Start Time Stop Time Status Last Admin Dose Admin Acetaminophen/ Hydrocodone Bitart 1 ea Q6H PRN PO 01/06/21 20:45 01/06/21 21:15 DC 01/06/21 21:13 1 EA Vital Signs/I&O 01/06/21 17:53 Temp 36.3 Pulse 86 Resp 16 B/P (MAP) 124/81 (95) Pulse Ox 98 O2 Delivery Room Air Capillary Refill : Less Than 3 Seconds Blood Pressure Mean: 95 Progress Note #1: Progress Note with his x-rays from recent ED visit showing subacute fracture of the fifth metacarpal on his left hand will place him in a ulnar gutter splint. Counseled on follow-up and return precautions for this. As he also had elevated white blood cell count we will recheck his labs to ensure that they are improving and that he does not have signs of sepsis or acute kidney injury dehydration or rhabdomyolysis since he reports that he has not been getting up and moving around. Progress Note #2: Progress Note Urine is concentrated, dehydration and did show methamphetamines and marijuana in his system. He had elevated white blood cell count but improved from a few days ago. He does have elevated platelets which may be related to the dehydration as well as methamphetamine abuse and stress. Renal function is normal. Lactic acid was normal. Counseled pt on results and placed in velcro wrist splint to right wrist Departure Impression Primary Impression: Displaced fracture of neck of left fifth metacarpal bone with malunion Qualified Codes: S62.337P - Displaced fracture of neck of fifth metacarpal bone, left hand, subsequent encounter for fracture with malunion Additional Impressions: Bilateral wrist pain Methamphetamine abuse Dehydration Disposition: 01 HOME, SELF-CARE Condition: Stable Departure-Patient Inst. Decision time for Depature: 20:44 Referrals: NO,LOCAL PHYSICIAN (PCP) Primary Care Physician RONNI LOZADA MD [facility] Patient Instructions: Splint Care ED, Hand Fracture ED, Dehydration, Adult ED, Wrist Sprain ED Add. Discharge Instructions: Keep splint clean and dry. If it gets wet it will fall apart. Use velcro splint on right wrist/hand to help with pain/support. Ice, rest and elevation to help with pain and swelling of hands. Hydrocodone for severe pain. Check with Dr. Gruber in [facility] clinic at [phone] for follow up and continued pain. You could see Orthopedics with Dr. Lozada or Dr. Manrique. Dr. Manrique does have a nurse practitioner, Bryan Fonseca, that works with him here at [facility] clinic in [place] if you want to try and follow up with him you could call [phone] All discharge instructions reviewed with patient and/or family. Voiced understanding. Scripts Hydrocodone/Acetaminophen (Hydrocodone-Acetamin 5-325 mg) 1 Each Tablet 1 TAB PO Q6H PRN for PAIN-SEVERE (8-10) for 5 Days, #20 TAB 0 Refills Prov: CHARY BROWER MD 01/06/21 CHARY BROWER MD Jan 06, 2021 18:24
[2021-01-06 18:45] LABS: CLARITY,URINE CLEAR; COLOR,URINE AMBER; GLUCOSE, URINE (UA) NEGATIVE (NEGATIVE); PH,URINE 5.5 (5-9); PROTEIN,URINE NEGATIVE (NEGATIVE)
[2021-01-06 18:46] LABS: BACTERIA,URINE NEGATIVE /HPF; BILIRUBIN,URINE 1+ (NEGATIVE); KETONES,URINE TRACE (NEGATIVE); LEUKOCYTE ESTERASE ,URINE NEGATIVE (NEGATIVE); NITRITE,URINE NEGATIVE (NEGATIVE); RBC,URINE 0-2 /HPF; SQUAMOUS EPITHELIAL CELL,UR 0-2 /HPF
[2021-01-06 18:48] LABS: AMPHETAMINE SCREEN, URINE POSITIVE (NEGATIVE); BARBITURATE SCREEN URINE NEGATIVE (NEGATIVE); BENZODIAZEPINES SCREEN URINE NEGATIVE (NEGATIVE); CANNABINOID SCREEN, URINE POSITIVE (NEGATIVE); COCAINE SCREEN URINE NEGATIVE (NEGATIVE); METHADONE STAT NEGATIVE (NEGATIVE); METHAMPHETAMINE SCREEN URINE S POSITIVE (NEGATIVE); OPIATE SCREEN URINE NEGATIVE (NEGATIVE); OXYCODONE STAT NEGATIVE (NEGATIVE); PROPOXYPHENE STAT NEGATIVE (NEGATIVE); TRICYCLIC ANTIDEPRESSANTS SCRE NEGATIVE (NEGATIVE)
[2021-01-06 18:49] LABS: BILIRUBIN,TOTAL 1.6 MG/DL (0.1-1.0); CREATININE SERUM 0.57 MG/DL (0.60-1.30); POTASSIUM 4.3 MMOL/L (3.6-5.0)
[2021-01-06 18:50] LABS: ALBUMIN 2.9 GM/DL (3.2-4.5); HEMATOCRIT 37 % (40-54); HEMOGLOBIN 12.5 G/DL (13.3-17.7); MEAN CORPUSCULAR HEMOGLOBIN 31 PG (25-34); MEAN CORPUSCULAR VOLUME 90 FL (80-99); TOTAL PROTEIN 7.6 GM/DL (6.4-8.2)
[2021-01-06 18:51] LABS: BASOPHILS # (AUTO) 0.1 10^3/uL (0.0-0.1); BASOPHILS % (AUTO) 1 % (0-10); EOSINOPHILS # (AUTO) 0.1 10^3/uL (0.0-0.3); EOSINOPHILS % (AUTO) 0 % (0-10); LYMPHOCYTES # (AUTO) 1.5 X 10^3 (1.0-4.0); LYMPHOCYTES % (AUTO) 9 % (12-44); MEAN CORPUSCULAR HGB CONC 34 G/DL (32-36); MONOCYTES % (AUTO) 6 % (0-12); NEUTROPHILS % (AUTO) 83 % (42-75)
[2021-01-06 18:53] LABS: PLATELET COUNT 1175 10^3/uL (130-400)
[2021-01-06 18:58] LABS: BAND NEUTROPHILS 4 %; NEUTROPHILS % (MANUAL) 74 %
[2021-01-06 18:59] LABS: ATYPICAL LYMPHOCYTES 7 %; BASOPHILS % (MANUAL) 1 %; EOSINOPHILS % (MANUAL) 0 %; HYPOCHROMASIA 1+; LYMPHOCYTES % (MANUAL) 7 %; METAMYELOCYTES % 1 %; MONOCYTES % (MANUAL) 5 %; MYELOCYTES % 1 %; PLATELET ESTIMATE INCREASED
[2021-01-06] MEDS ORDERED: ACHD5005 PO (20:47)
[2021-01-06 21:13] VITALS: BP 133/72
== END 2021-01-06 21:13 | disposition home or self-care (01) ==
LOC: EDUNIT# 17:47 → ER FS 17:48
DX: S62.337P Displaced fracture of neck of fifth metacarpal bone, left hand, subsequent encounter for fracture with malunion (principal); S60.212A Contusion of left wrist, initial encounter; F15.10 Other stimulant abuse, uncomplicated; E86.0 Dehydration; G89.29 Other chronic pain; M54.9 Dorsalgia, unspecified; F17.210 Nicotine dependence, cigarettes, uncomplicated; Z79.891 Long term (current) use of opiate analgesic; Z79.899 Other long term (current) drug therapy; W19.XXXA Unspecified fall, initial encounter
CPT/HCPCS: 29125; 36415; 80053; 80306; 81000; 82550; 83605; 85007; 85027; 87040; 99284; A4565

== ENCOUNTER 2021-01-23 10:31 | Emergency (ER) | payer SELFPAY ==
[~2021-01-23] VITALS: Ht 180.3 cm; Wt 95.2 kg
[~2021-01-23 10:31] MED LIST changes: +ACHD5005 PO
--- OUTSIDE RECORDS SUMMARY | 2021-01-23 10:40 | XMS REPORT ---
Author Author Banner Address Unknown Phone Unavailable Care Team Providers Care Senior Talent Acquisition Specialist Name Role Phone Migration, Doctor Unavailable Unavailable PROBLEMS Type Condition ICD9-CM Code [id number] Code Onset Dates Condition S tatus W/U Status Risk SNOMED Code Notes Problem Displacement of lumbar intervertebral disc without mye lopathy M51.26 Active 20020311 DISPLACEMENT OF LUMBAR INTERVERTEBRAL DISC WITHOUT MYELOPATHY Problem Other chronic pain G89.29 Active confirmed 8 9120096 Problem Concussion with loss of consciousness of 30 minutes or less S06.0X1A Active 991243864 CONCUSSION WITH LOSS OF CONSCIOUSNESS OF 30 MINUTES OR LESS ALLERGIES Allergen (clinical drug ingredient) Drug/Non Drug Allergy do cumented on EMR Reaction Allergy Type Onset Date Status Tramadol Unknown Drug Allergy Active Toradol Unknown Drug Allergy Active amoxicillin Amoxicillin([facility] Code:[address]-05) Unknown Drug Aller gy Active ENCOUNTERS from 1974 to 2021-01-14 Encounter Location Date Provider Diagnosis [facility] [address] [facility] [id number] [place] [address] Sep, Doctor Migration IMMUNIZATIONS No Information SOCIAL [...] Answer Notes Date Tobacco Cessation Provided: 03/28/2019 PHQ2 Question Answer Notes In the last 2 weeks, how often have you had little interest or pleasure in doing things? Not at all In the last 2 weeks, how often have you been feeling down, depressed, or hopeless? Not at all Total PHQ2 Score 0 Tobacco use other than smoking: Question Answer Notes Are you an other tobacco user? No REASON FOR REFERRAL No Information VITAL SIGNS No information MEDICATIONS Medication SIG (Take, Route, Frequency, Duration) Notes Start Da te End Date Status Cyclobenzaprine HCl 10 MG 1 tablet Orally every 8 hours, PRN for 30 day(s) Dec, Active Diclofenac Sodium 75 MG 1 tablet Orally Twice a day for 30 day(s ) Dec, Active PROCEDURES No Information RESULTS No Results REASON FOR VISIT [facility] [place] Section No Information Health Concerns No Information MEDICAL EQUIPMENT No Information MENTAL STATUS No Information FUNCTIONAL STATUS No Information ASSESSMENTS No Information PLAN OF TREATMENT Medication Medication Name Sig Start Date Stop Date Cyclobenzaprine HCl 10 MG 1 tablet Orally every 8 hours, PRN for 30 day(s) Dec, Diclofenac Sodium 75 MG 1 tablet Orally Twice a day for 30 day(s ) Dec, Next Appt Details Provider Name:YAMILETH LEVI, 2021-01-15 09:15:00 AM, [address] [facility], [id number], [place], [address], Insurance Providers Payer Name Payer Address Payer Phone Insured Name Patient Relati onship to Insured Coverage Start Date Coverage End Date [facility] [id number] [facility] [phone] Kaveh Costello
[2021-01-23 11:10] VITALS: BP 129/98
[2021-01-23] MEDS ORDERED: HYDROcodone/APAP 5 MG/325 MG (LORTAB) TAB PO ONE (11:30)
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
[2021-01-23] MEDS ORDERED: ACHD5005 PO (12:05)
[2021-01-23] MEDS ORDERED: wheelchair MC (12:07)
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
== END 2021-01-23 12:00 | disposition home or self-care (01) ==
LOC: EDUNIT# 10:31 → ER 10:36
DX: S62.307A Unspecified fracture of fifth metacarpal bone, left hand, initial encounter for closed fracture (principal); S62.306A Unspecified fracture of fifth metacarpal bone, right hand, initial encounter for closed fracture; M79.672 Pain in left foot; M79.671 Pain in right foot; G89.29 Other chronic pain; M54.9 Dorsalgia, unspecified; Z79.891 Long term (current) use of opiate analgesic; Z79.899 Other long term (current) drug therapy; Y04.2XXA Assault by strike against or bumped into by another person, initial encounter

== ENCOUNTER 2021-10-19 19:35 | Emergency (ER) | payer MEDICAID, MEDICARE ==
[~2021-10-19 19:35] MED LIST changes: +wheelchair MC
== END 2021-10-19 20:31 | disposition left against medical advice (07) ==
LOC: EDUNIT# 19:35 → ER 19:41
DX: R52 Pain, unspecified (principal)